=== PATIENT | female | born 1940 | race Caucasian/White ===

== ENCOUNTER 2022-01-18 12:12 | Day surgery (SDC) | payer OTHER ==
[~2022-01-18] VITALS: Ht 162.6 cm; Wt 79.7 kg
[~2022-01-18 12:12] MED LIST: ASCO500; Estrace Vagin42.5 GM; RIZATRIPTAN10 MG; SOTO80; TRAM50; TRAZ50; XARELTO20 MG
[2022-01-18] MEDS ORDERED: CETI5 PO (12:43)
[2022-01-18] MEDS ORDERED: Voltaren100 GM TOP (12:44)
--- NOTE | 2022-01-18 13:01 | NUR ---
01/18/22 1301 [address] Rojo [id number]
== END 2022-01-18 14:13 | disposition home or self-care (01) ==
LOC: ORSCSDS 12:12
PROVIDERS: Ophthalmology
PROC: 08RK3JZ Replacement of Left Lens with Synthetic Substitute, Percutaneous Approach (ICD-10-PCS; principal; 2022-01-18 13:30)
DX: H25.12 Age-related nuclear cataract, left eye (principal); H52.4 Presbyopia; I48.91 Unspecified atrial fibrillation; Z79.01 Long term (current) use of anticoagulants; Z79.899 Other long term (current) drug therapy
CPT/HCPCS: J2001; J2250; J3010; J3301; J7040; V2632

== ENCOUNTER → 2022-01-23 | Outpatient (CLI) | payer OTHER ==
[~2022-01-23] MED LIST changes: +CETI5 PO; +Voltaren100 GM TOP
[2022-01-29 15:08] LABS: HPV 16 Negative (Negative); HPV 18 Negative (Negative); HPV OTHER HR TYPES Negative (Negative)
== END ==
LOC: LAB 16:00 → LAB SHORT 16:00
PROVIDERS: Family Medicine
DX: Z01.419 Encounter for gynecological examination (general) (routine) without abnormal findings (principal)
CPT/HCPCS: 87624; G0123

== ENCOUNTER → 2023-02-12 | Outpatient (CLI) | payer OTHER ==
[2023-02-12 15:47] LABS: Magnesium, Blood 2.1 mg/dL (1.6-2.4)
[2023-02-12 15:59] LABS: Albumin, Blood 3.4 g/dL (3.4-5.0); Albumin/Globulin Ratio 0.9 (0.8-1.8); Bilirubin, Total 0.4 mg/dL (0.1-1.0); Bun/Creatinine Ratio 21.3 (12.0-20.0); Calcium, Blood 8.7 mg/dL (8.5-10.1); Creatinine, Blood 0.89 mg/dL (0.40-1.00); Globulin, Blood 3.6 g/dL (2.2-4.0); Potassium, Blood 4.5 mmol/L (3.5-5.5); Thyroid Stimulating Hormone 3.8 uIU/mL (0.360-4.800)
== END | disposition home or self-care (01) ==
LOC: LAB 13:15 → LAB SHORT 13:15
PROVIDERS: Physician Assistant
DX: R25.2 Cramp and spasm (principal)
CPT/HCPCS: 80053; 83735; 84443

== ENCOUNTER → 2025-05-20 | Outpatient (CLI) | payer OTHER | LOC: LAB SHORT 14:47 → LAB 14:47 | DX: R82.90 Unspecified abnormal findings in urine (principal) | CPT/HCPCS: 87086 ==

== ENCOUNTER → 2025-05-22 | Outpatient (CLI) | payer OTHER | LOC: LAB 09:30 → LAB SHORT 09:30 | DX: N39.0 Urinary tract infection, site not specified (principal); R31.9 Hematuria, unspecified | CPT/HCPCS: 87086 ==